=== PATIENT | female | born 1980 | race Caucasian/White ===

== ENCOUNTER → 2019-11-30 | Outpatient (CLI) | payer BC ==
--- NOTE | 2019-11-30 17:34 | RAD ---
CHEST PA LATERAL Clinical indications: Adrenal medullary hyperfunction COMPARISON: None available. Findings: No acute lung infiltrate or pleural effusion or pulmonary edema or lung mass or pneumothorax is seen. The heart size, pulmonary vasculature, mediastinum and both ciro are unremarkable. The osseous structures appear intact. Impression: No acute radiographic abnormality is seen. Electronically signed by: Cholo Murillo MD (11/30/2019 5:31 PM) [facility] [place]
== END | disposition home or self-care (01) ==
LOC: RAD 15:28
PROVIDERS: ATTEND Family Medicine
DX: E27.5 Adrenomedullary hyperfunction (principal)
CPT/HCPCS: 71046

== ENCOUNTER → 2021-06-12 | Outpatient (CLI) | payer BC ==
[2021-06-12 16:15] LABS: BASO # 0.1 x10^3/uL (0.0-0.2); BASO % 1 % (0-3); EOS # 0.3 x10^3/uL (0.0-0.7); EOS % 4 % (0-3); HEMATOCRIT 36.5 % (36.0-47.0); HEMOGLOBIN 11.9 g/dL (12.0-15.5); LYMPH # 3.5 x10^3/uL (1.0-4.8); LYMPH % 39 % (24-48); MEAN CORPUSCULAR HEMOGLOBIN 27 pg (25-35); MEAN CORPUSCULAR HGB CONC 33 g/dL (31-37); MEAN CORPUSCULAR VOLUME 83 fL (79-100); MONO # 0.7 x10^3/uL (0.0-1.1); MONO % 8 % (0-9); NEUT # 4.4 x10^3uL (1.8-7.7); NEUT % 49 % (31-73); PLATELET COUNT 324 x10^3/uL (140-400); RED BLOOD COUNT 4.38 x10^6/uL (3.50-5.40); RED CELL DISTRIBUTION WIDTH 13.5 % (11.5-14.5); WHITE BLOOD COUNT 9.1 x10^3/uL (4.0-11.0)
[2021-06-12 16:25] LABS: ALBUMIN 3.3 g/dL (3.4-5.0); ALBUMIN/GLOBULIN RATIO 0.9 (1.0-1.7); CALCIUM 8.7 mg/dL (8.5-10.1); CREATININE 0.9 mg/dL (0.6-1.0); GFR 70.1; POTASSIUM 3.8 mmol/L (3.5-5.1); TOTAL BILIRUBIN 0.1 mg/dL (0.2-1.0); TOTAL PROTEIN 6.9 g/dL (6.4-8.2)
[2021-06-14 05:43] LABS: HEMOGLOBIN A1C 5.7 % (4.8-5.6)
== END ==
LOC: LAB 15:28
PROVIDERS: ATTEND Nurse Practitioner Women's Health
DX: N92.0 Excessive and frequent menstruation with regular cycle (principal)
CPT/HCPCS: 36415; 80053; 83036; 84443; 85025

== ENCOUNTER → 2021-06-29 | Outpatient (CLI) | payer BC ==
--- NOTE | 2021-06-29 18:03 | RAD ---
Pelvic ultrasound to include transabdominal and transvaginal imaging 06/29/2021 CLINICAL HISTORY: Menorrhagia. TECHNIQUE: Using the distended urinary bladder as a sonographic window, a real-time ultrasound examin ation of the pelvis was performed. Additionally in an attempt to better evaluate the uterus and adnex a, a transvaginal ultrasound study was performed. Multiple images were obtained. FINDINGS: The uterus is retroverted. It is normal in size. It measures 8.4 x 5.6 x 4.2 cm in longitud inal, transverse, and AP dimensions. The endometrial echo complex measures 6 mm in thickness which is within normal limits. A heterogeneous area is seen within the anterior aspect of the body/fundus of the uterus which measures 2 cm in size. This is felt to most to likely represent a uterine fibroid. N o additional abnormality of the uterus is seen. The right ovary is normal in size and echogenicity. It measures 2.6 x 1.7 x 1.5 cm in size. The left ovary is mildly enlarged. It measures 4.1 x 3.0 x 2.9 cm in size. Within the left ovary oval-shaped a nechoic structure is seen which measures 2.7 cm in greatest diameter. This is consistent with a simpl e cyst. Normal color-flow and pulse Doppler imaging to the left ovary is seen. No free fluid is noted . IMPRESSION: 1. 2 cm heterogeneous area is seen within the anterior body/fundus of the uterus which likely represe nts a uterine fibroid. 2. 2.7 cm simple left ovarian cyst. Electronically signed by: Amandeep Causey MD (06/29/2021 6:01 PM) [id number]
== END ==
LOC: US 12:48
PROVIDERS: ATTEND Nurse Practitioner Women's Health
DX: N83.292 Other ovarian cyst, left side (principal); N92.0 Excessive and frequent menstruation with regular cycle; N85.4 Malposition of uterus
CPT/HCPCS: 76830; 76856